=== PATIENT | female | born 1985 | race Two or more races ===

== ENCOUNTER 2024-02-28 12:38 | Emergency (ER) | payer OTHER ==
[2024-02-28 13:24] VITALS: BP 115/75; PULSE 69; RESP 18; TEMP 98.7; BMI 29.0
[2024-02-28] MEDS ORDERED: ACETAMINOPHEN 325 MG TABLET (FP) ONE (13:44)
[2024-02-28] MEDS: ACETAMINOPHEN 325 MG TABLET (FP) PO ONE (13:54)
[2024-02-28 13:58] LABS: HCG,QUALITATIVE URINE Positive
[2024-02-28 13:59] LABS: PH,URINE 6.5 (5.0-8.0); URINE APPEARANCE CLEAR; URINE BILIRUBIN NEGATIVE (NEGATIVE); URINE COLOR YELLOW; URINE GLUCOSE (UA) NEGATIVE (NEGATIVE); URINE KETONE NEGATIVE (NEGATIVE); URINE LEUK ESTERASE NEGATIVE (NEGATIVE); URINE NITRITE NEGATIVE (NEGATIVE); URINE PROTEIN NEGATIVE (NEGATIVE); URINE UROBILINOGEN 0.2 mg/dL (0.2-1.0)
== END 2024-02-28 14:59 | disposition home or self-care (01) ==
LOC: JER 12:38
DX: O09.511 Supervision of elderly primigravida, first trimester (principal); O26.891 Other specified pregnancy related conditions, first trimester; R10.31 Right lower quadrant pain; Z3A.01 Less than 8 weeks gestation of pregnancy; Z20.822 Contact with and (suspected) exposure to COVID-19
CPT/HCPCS: 0241U-QW; 81003; 84703; 87086; 99283-25

== ENCOUNTER 2024-10-27 08:00 | Inpatient (IN) | payer OTHER ==
[2024-10-27 09:08] VITALS: BMI 36.6
[2024-10-27 09:52] LABS: ABSOLUTE IMMATURE GRANULOCYTES 0.09 x10^3/uL (0.0-0.031); BASOPHILS # 0.03 x10^3/uL (0.01-0.08); EOSINOPHIL % 0.3 % (0.7-5.8); EOSINOPHILS # 0.02 x10^3/uL (0.04-0.36); HEMATOCRIT 36.7 % (34.1-44.9); HEMOGLOBIN 12.5 g/dL (11.2-15.7); MCHC 34.1 g/dl (32.2-35.5); MEAN CELL VOLUME 94.6 fl (79.4-94.8); MEAN PLT VOLUME 9.5 fl (9.4-12.3); MONOCYTE # 0.72 x10^3/uL (0.24-0.86); MONOCYTE % 10.5 % (4.7-12.5); PLATELET COUNT 261 x10^3/uL (182-369); RDW 12.7 % (12.1-16.8)
[2024-10-27 09:59] LABS: INR 0.9 (0.83-1.09); PROTHROMBIN TIME (PATIENT) 9.8 SEC (9.7-13.0)
[2024-10-27 10:02] LABS: ACTIVATED PTT 28.7 SECONDS (25.2-36.5)
[2024-10-27] MEDS: LACTATED RINGERS SOLUTION 1,000 ML IV SCH (10:05)
[2024-10-27 10:21] LABS: POTASSIUM 4.1 mmol/L (3.5-5.1)
[2024-10-27 10:22] LABS: CALCIUM 9.3 mg/dL (8.5-10.1)
[2024-10-27 10:23] LABS: BLOOD UREA NITROGEN 9.4 mg/dL (7-18)
[2024-10-27 10:26] LABS: CREATININE 0.6 mg/dL (0.55-1.3)
[2024-10-27] MEDS ORDERED: OXYTOCIN 30 UNITS in 0.9% NS 30 UNIT/500 ML INFUS.BAG IVPB ONE (11:12)
[2024-10-27] MEDS: OXYTOCIN 30 UNITS in 0.9% NS 30 UNIT/500 ML INFUS.BAG IVPB SCH (11:30)
[2024-10-27] MEDS ORDERED: FENTANYL/BUPIVACAINE/NS/PF - PCEA - 50 ML DISP.SYRIN EP ONE (18:03)
[2024-10-27] MEDS: FENTANYL/BUPIVACAINE/NS/PF - PCEA - 50 ML DISP.SYRIN EP SCH (18:30)
[2024-10-27] MEDS ORDERED: NALOXONE HCL 0.4 MG/ML VIAL IVPUSH PRN (19:05)
[2024-10-27] MEDS ORDERED: SUCCINYLCHOLINE CHLORIDE 200 MG/10 ML SYRINGE ONE (22:23)
[2024-10-27] MEDS ORDERED: SODIUM BICARBONATE 8.4% 50 MEQ/50 ML VIAL ONE (22:23)
[2024-10-27] MEDS ORDERED: PROPOFOL 20 ML ONE (22:24)
[2024-10-27] MEDS ORDERED: AZITHROMYCIN IVPB 500 MG/250 ML BAG IVPB ONE (22:40)
[2024-10-27] MEDS ORDERED: FENTANYL CITRATE/PF 50 MCG/ML VIAL ONE (22:58)
[2024-10-27] MEDS ORDERED: MIDAZOLAM HCL 2 MG/2 ML SINGLE DOSE VIAL ONE ×2 (22:58→23:02)
[2024-10-27] MEDS ORDERED: KETAMINE HCL 200 MG/20 ML VIAL ONE (23:01)
[2024-10-27] MEDS ORDERED: morphine SULFATE/PF 1 MG/2 ML (2cc Syringe - QUVA) ONE (23:07)
[2024-10-27 23:25] LABS: CORD BASE EXCESS -7.7 mmol/L (0-2); CORD HCO3 20.9 mmHg (20-29); CORD PCO2 53.6 mmHg (30-78); CORD pH 7.208 (7.14-7.44)
[2024-10-27 23:28] LABS: CORD BASE EXCESS -4.5 mmol/L (0-2); CORD HCO3 20.9 mmHg (20-29); CORD PCO2 39.8 mmHg (30-78); CORD pH 7.338 (7.14-7.44)
[2024-10-27] MEDS ORDERED: METHYLERGONOVINE MALEATE 0.2 MG/1 ML AMP IM PRN (23:34)
[2024-10-28] MEDS: IBUPROFEN 600 MG TABLET (FP) PO SCH (00:05)
[2024-10-28] MEDS: ACETAMINOPHEN 325 MG TABLET (FP) PO SCH (00:05)
[2024-10-28] MEDS ORDERED: IBUPROFEN 800 MG/8 ML IJ IVPB ONE (00:20)
[2024-10-28] MEDS: BUTORPHANOL TARTRATE 2 MG/ML VIAL IVPB ONE (00:20)
[2024-10-28] MEDS: ELECTROLYTE-148 SOLN 1,000 ML IV SCH (00:21)
[2024-10-28] MEDS: PROMETHAZINE HCL 25 MG/1 ML VIAL IVPB ONE (00:21)
[2024-10-28] MEDS: IBUPROFEN 800 MG/8 ML IJ IVPB PRN (00:25)
[2024-10-28] MEDS ORDERED: OXYTOCIN 20 UNITS in 0.9% NS 20 UNIT/1,000 ML INFUS.BAG IV ONE (00:37)
[2024-10-28] MEDS: OXYTOCIN 20 UNITS in 0.9% NS 20 UNIT/1,000 ML INFUS.BAG IV SCH (00:40)
[2024-10-28 07:02] LABS: BASOPHILS # 0.03 x10^3/uL (0.01-0.08); EOSINOPHIL % 0.1 % (0.7-5.8); EOSINOPHILS # 0.01 x10^3/uL (0.04-0.36); HEMATOCRIT 30.6 % (34.1-44.9); HEMOGLOBIN 10.4 g/dL (11.2-15.7); MEAN CELL VOLUME 95.3 fl (79.4-94.8); MEAN PLT VOLUME 9.5 fl (9.4-12.3); MONOCYTE # 1.12 x10^3/uL (0.24-0.86); MONOCYTE % 7.6 % (4.7-12.5); PLATELET COUNT 223 x10^3/uL (182-369); RDW 12.4 % (12.1-16.8)
[2024-10-28] MEDS: SIMETHICONE 80 MG TAB.CHEW (FP) PO PRN (16:17)
[2024-10-28] MEDS: oxyCODONE HCL 5 MG TABLET PO PRN (21:01)
[2024-10-28] MEDS ORDERED: BISACODYL 10 MG SUPP.RECT RC PRN (23:34)
[2024-10-29 10:54] VITALS: RESP 18
[2024-10-30 06:36] LABS: ABSOLUTE IMMATURE GRANULOCYTES 0.09 x10^3/uL (0.0-0.031); BASOPHILS # 0.03 x10^3/uL (0.01-0.08); EOSINOPHILS # 0.11 x10^3/uL (0.04-0.36); HEMATOCRIT 29.3 % (34.1-44.9); HEMOGLOBIN 9.8 g/dL (11.2-15.7); MCHC 33.4 g/dl (32.2-35.5); MEAN CELL VOLUME 98.3 fl (79.4-94.8); MEAN PLT VOLUME 9.7 fl (9.4-12.3); MONOCYTE # 1.19 x10^3/uL (0.24-0.86); MONOCYTE % 10.3 % (4.7-12.5); PLATELET COUNT 233 x10^3/uL (182-369); RDW 13.2 % (12.1-16.8)
[2024-10-30 09:01] VITALS: BP 125/80; PULSE 96; TEMP 98.2
== END 2024-10-30 11:00 | disposition home or self-care (01) | DRG 540 ==
LOC: JLDR 08:00 → J3W 10-28 02:45
PROVIDERS: ADMIT Obstetrics & Gynecology; ATTEND Obstetrics & Gynecology
PROC: 10D00Z1 Extraction of Products of Conception, Low, Open Approach (ICD-10-PCS; principal; 2024-10-27)
DX: O76 Abnormality in fetal heart rate and rhythm complicating labor and delivery (principal); Z3A.39 39 weeks gestation of pregnancy; Z37.0 Single live birth
CPT/HCPCS: 36415; 36600; 80048; 82803; 85025; 85461; 85610; 85730; 86780; 86850; 86870; 86880; 86900; 86901; 86902; 88307-TC; 94010; 96372; J2790